=== PATIENT | male | born 1950 | race Hispanic/Latino ===

== ENCOUNTER 2016-11-22 08:55 | Outpatient (CLI) | payer MEDICAID ==
[2016-11-22 09:14] LABS: Basophils % (Auto) 0.7 % (0.0-1.8); Eosinophils % (Auto) 4.6 % (0.0-4.3); Hematocrit 45.3 % (35.5-45.6); Hemoglobin 15.2 gm/dl (11.8-15.2); Mean Corpuscular HGB Conc 33 % (32-34); Mean Corpuscular Hemoglobin 29 pg (28-32); Mean Corpuscular Volume 87 fl (84-94); Platelet Count 206 K/mm3 (140-440); Red Blood Count 5.22 M/mm3 (3.65-5.03); Red Cell Distribution Width 12.3 % (13.2-15.2); White Blood Count 8.7 K/mm3 (4.5-11.0)
[2016-11-22 09:26] LABS: INR 1.02 (0.87-1.13)
[2016-11-22 09:29] LABS: Alanine Aminotransferase 17 units/L (7-56); Albumin 4.6 g/dL (3.9-5); Albumin/Globulin Ratio 1.4 %; Alkaline Phosphatase 65 units/L (35-129); Anion Gap 18 mmol/L; BUN/Creatinine Ratio 24.44; Bilirubin,Total 0.4 mg/dL (0.1-1.2); Blood Urea Nitrogen 22 mg/dL (9-20); Calcium 9.6 mg/dL (8.4-10.2); Carbon Dioxide 28 mmol/L (22-30); Chloride 100.3 mmol/L (98-107); Glucose 116 mg/dL (75-100); Potassium 4.6 mmol/L (3.6-5.0); Sodium 142 mmol/L (137-145)
== END 2016-11-22 08:56 | disposition home or self-care (01) ==
LOC: LAB 08:55
PROVIDERS: ATTEND Internal Medicine Gastroenterology
DX: B18.2 Chronic viral hepatitis C (principal)
CPT/HCPCS: 36415; 80053; 85025; 85610; 87517

== ENCOUNTER 2017-04-25 10:54 | Outpatient (CLI) | payer MEDICAID ==
[2017-04-25] MEDS ORDERED: NACL ONE (11:33)
[2017-04-25 11:39] LABS: Blood Urea Nitrogen 20 mg/dL (9-20)
--- NOTE | 2017-04-25 13:45 | Cat Scan Report ---
CT of the abdomen with IV and oral contrast. History: Epigastric hernia defect. Findings: The liver, spleen, and pancreas are normal. The gallbladder is unremarkable. The adrenal glands are normal. There multiple bilateral renal cysts. The largest cyst on the right side measures 6.5 cm in diameter. The largest cyst on the left measures 3.7 cm in diameter. There is a small umbilical hernia containing fat measuring 1.8 cm in diameter. There is no bowel involvement. Impression: 1. Multiple bilateral renal cysts. 2. Small umbilical hernia containing fat.
== END 2017-04-25 10:55 | disposition home or self-care (01) ==
LOC: CT 10:54
PROVIDERS: ATTEND Surgery
DX: K43.6 Other and unspecified ventral hernia with obstruction, without gangrene (principal); N28.1 Cyst of kidney, acquired; K42.9 Umbilical hernia without obstruction or gangrene
CPT/HCPCS: 36415; 74160; 82565; 84520; Q9967